=== PATIENT | female | born 1950 | race Caucasian/White ===

== ENCOUNTER → 2016-06-16 | Outpatient (CLI) | payer MEDICARE, OTHER ==
[2016-06-16 12:39] LABS: Basophils # (auto) 0 uL; Basophils % (auto) 0.3 % (0.0-2.0); DEFINITIVE VIEW TRANSMISSION; Eosinophils # (auto) 0.2 uL; Eosinophils % (auto) 3.5 % (0.0-7.0); Hematocrit 36.3 % (36.0-46.0); Hemoglobin 11.8 g/dL (12.2-16.2); Lymphocytes # (auto) 0.9 uL; Lymphocytes % (auto) 13.9 % (10.0-50.0); Mean Corpuscular Hemoglobin 26.7 pg (28.0-32.0); Mean Corpuscular Hgb Conc. 32.4 g/dL (32.0-36.0); Mean Corpuscular Volume 82.4 fL (80.0-100.0); Mean Platelet Volume 9.2 fL (7.4-10.4); Monocytes # (auto) 0.5 uL; Neutrophils % (auto) 75.3 % (37.0-80.0); Platelet Count (auto) 268 10^3/uL (140-450); Red Cell Distribution Width 15.4 % (11.6-16.0); White Blood Cell 6.6 10^3/uL (4.4-10.8)
[2016-06-16 12:49] LABS: Albumin 3.9 g/dL (3.4-5.0); BUN/Creatinine Ratio 11.5; Bilirubin, Total 0.5 mg/dL (0.2-1.0); Calcium 9.8 mg/dL (8.5-10.1); Potassium 4.5 mmol/L (3.5-5.1); Total Protein 7.3 g/dL (6.4-8.2)
== END | disposition home or self-care (01) ==
LOC: LAB 11:47
DX: I10 Essential (primary) hypertension (principal); M06.9 Rheumatoid arthritis, unspecified; M25.50 Pain in unspecified joint; Z79.899 Other long term (current) drug therapy; D64.9 Anemia, unspecified
CPT/HCPCS: 36415; 80053; 85025; 85652; 86141

== ENCOUNTER → 2016-10-01 | Outpatient (CLI) | payer MEDICARE, MEDICAID ==
[2016-10-01 14:33] LABS: Basophils # (auto) 0 uL; Basophils % (auto) 0.4 % (0.0-2.0); CONDITION Y; DEFINITIVE SEE PRINTOUT; Eosinophils # (auto) 0.3 uL; Eosinophils % (auto) 4.5 % (0.0-7.0); Hematocrit 34.5 % (36.0-46.0); Hemoglobin 11.2 g/dL (12.2-16.2); Lymphocytes # (auto) 0.8 uL; Lymphocytes % (auto) 14.7 % (10.0-50.0); Mean Corpuscular Hemoglobin 26.8 pg (28.0-32.0); Mean Corpuscular Hgb Conc. 32.4 g/dL (32.0-36.0); Mean Corpuscular Volume 82.8 fL (80.0-100.0); Mean Platelet Volume 7.8 fL (7.4-10.4); Monocytes # (auto) 0.7 uL; Monocytes % (auto) 12.2 % (0.0-12.0); Neutrophils # (auto) 3.9 uL; Neutrophils % (auto) 68.2 % (37.0-80.0); Platelet Count (auto) 315 10^3/uL (140-450); Red Cell Distribution Width 16.7 % (11.6-16.0); White Blood Cell 5.8 10^3/uL (4.4-10.8)
[2016-10-01 15:31] LABS: Albumin 3.6 g/dL (3.4-5.0); BUN/Creatinine Ratio 14.5; Bilirubin, Total 0.4 mg/dL (0.2-1.0); Calcium 9.2 mg/dL (8.5-10.1); Potassium 4.1 mmol/L (3.5-5.1); Total Protein 6.7 g/dL (6.4-8.2)
== END | disposition home or self-care (01) ==
LOC: LAB 14:06
DX: M06.9 Rheumatoid arthritis, unspecified (principal); M25.50 Pain in unspecified joint; D64.9 Anemia, unspecified; I10 Essential (primary) hypertension
CPT/HCPCS: 36415; 80053; 85025; 85652; 86141

== ENCOUNTER → 2016-10-07 | Outpatient (CLI) | payer MEDICARE, MEDICAID ==
[2016-10-07 12:37] LABS: Basophils # (auto) 0 uL; Basophils % (auto) 0.5 % (0.0-2.0); CONDITION Y; Eosinophils # (auto) 0.2 uL; Eosinophils % (auto) 3.8 % (0.0-7.0); Hematocrit 36.2 % (36.0-46.0); Lymphocytes # (auto) 0.7 uL; Lymphocytes % (auto) 13.1 % (10.0-50.0); Mean Corpuscular Hemoglobin 27.1 pg (28.0-32.0); Mean Corpuscular Hgb Conc. 33.1 g/dL (32.0-36.0); Mean Corpuscular Volume 81.8 fL (80.0-100.0); Mean Platelet Volume 8.3 fL (7.4-10.4); Monocytes # (auto) 0.5 uL; Monocytes % (auto) 8.9 % (0.0-12.0); Neutrophils # (auto) 4.2 uL; Neutrophils % (auto) 73.7 % (37.0-80.0); Platelet Count (auto) 289 10^3/uL (140-450); Red Cell Distribution Width 15.9 % (11.6-16.0); White Blood Cell 5.7 10^3/uL (4.4-10.8)
[2016-10-07 13:13] LABS: Albumin 3.8 g/dL (3.4-5.0); BUN/Creatinine Ratio 9.2; Bilirubin, Total 0.3 mg/dL (0.2-1.0); Calcium 9.6 mg/dL (8.5-10.1); Total Protein 7.3 g/dL (6.4-8.2)
== END | disposition home or self-care (01) ==
LOC: LAB 12:03
DX: M06.9 Rheumatoid arthritis, unspecified (principal); M25.50 Pain in unspecified joint; D64.9 Anemia, unspecified; I10 Essential (primary) hypertension; Z79.899 Other long term (current) drug therapy; M33.20 Polymyositis, organ involvement unspecified; M32.10 Systemic lupus erythematosus, organ or system involvement unspecified
CPT/HCPCS: 36415; 80053; 85025; 85652; 86038; 86141; 86160; 86200; 86225; 86431

== ENCOUNTER → 2017-01-05 | Outpatient (CLI) | payer MEDICARE, MEDICAID ==
[2017-01-05 10:59] LABS: Basophils # (auto) 0 uL; Basophils % (auto) 0.8 % (0.0-2.0); Eosinophils # (auto) 0.2 uL; Eosinophils % (auto) 4.4 % (0.0-7.0); Hemoglobin 13.5 g/dL (12.2-16.2); Lymphocytes # (auto) 0.7 uL; Lymphocytes % (auto) 14.4 % (10.0-50.0); Mean Corpuscular Hemoglobin 28.5 pg (28.0-32.0); Mean Corpuscular Hgb Conc. 32.9 g/dL (32.0-36.0); Mean Corpuscular Volume 86.8 fL (80.0-100.0); Mean Platelet Volume 8.5 fL (6.9-10.8); Monocytes # (auto) 0.4 uL; Monocytes % (auto) 9.2 % (0.0-12.0); Neutrophils # (auto) 3.4 uL; Neutrophils % (auto) 71.2 % (37.0-80.0); Nucleated Red Blood Cells % 0.1 %; Platelet Count (auto) 201 10^3/uL (140-450); Red Cell Distribution Width 16.4 % (11.8-14.3); White Blood Cell 4.7 10^3/uL (4.4-10.8)
[2017-01-05 11:23] LABS: Albumin 3.9 g/dL (3.4-5.0); Bilirubin, Total 0.4 mg/dL (0.2-1.0); Calcium 9.6 mg/dL (8.5-10.1); Potassium 4.2 mmol/L (3.5-5.1); Total Protein 7.1 g/dL (6.4-8.2)
== END | disposition home or self-care (01) ==
LOC: LAB 10:12
DX: I10 Essential (primary) hypertension (principal); M06.9 Rheumatoid arthritis, unspecified; M25.50 Pain in unspecified joint; D64.9 Anemia, unspecified; Z79.899 Other long term (current) drug therapy
CPT/HCPCS: 36415; 80053; 85025; 85652; 86141

== ENCOUNTER → 2017-03-30 | Outpatient (CLI) | payer MEDICARE, MEDICAID ==
[2017-03-30 11:01] LABS: Basophils # (auto) 0 uL; Basophils % (auto) 0.7 % (0.0-2.0); Eosinophils # (auto) 0.3 uL; Eosinophils % (auto) 4.9 % (0.0-7.0); Hematocrit 40.8 % (36.0-46.0); Lymphocytes # (auto) 0.7 uL; Lymphocytes % (auto) 12.4 % (10.0-50.0); Mean Corpuscular Hemoglobin 30.6 pg (28.0-32.0); Mean Corpuscular Hgb Conc. 34.3 g/dL (32.0-36.0); Mean Corpuscular Volume 89.3 fL (80.0-100.0); Mean Platelet Volume 8.2 fL (6.9-10.8); Monocytes # (auto) 0.5 uL; Monocytes % (auto) 8.5 % (0.0-12.0); Neutrophils # (auto) 4.1 uL; Neutrophils % (auto) 73.5 % (37.0-80.0); Nucleated Red Blood Cells % 0.1 %; Platelet Count (auto) 233 10^3/uL (140-450); Red Cell Distribution Width 14.4 % (11.8-14.3); White Blood Cell 5.6 10^3/uL (4.4-10.8)
[2017-03-30 11:42] LABS: Albumin 4.1 g/dL (3.4-5.0); BUN/Creatinine Ratio 12.5; Bilirubin, Total 0.5 mg/dL (0.2-1.0); Potassium 4.2 mmol/L (3.5-5.1); Total Protein 7.6 g/dL (6.4-8.2)
== END | disposition home or self-care (01) ==
LOC: LAB 10:29
DX: I10 Essential (primary) hypertension (principal); M06.9 Rheumatoid arthritis, unspecified; I70.0 Atherosclerosis of aorta; D64.9 Anemia, unspecified; E78.00 Pure hypercholesterolemia, unspecified; Z79.899 Other long term (current) drug therapy
CPT/HCPCS: 36415; 80053; 85025; 85652; 86141

== ENCOUNTER 2024-06-22 00:55 | Inpatient (IN) | payer MEDICARE, MEDICAID ==
[~2024-06-22] VITALS: Ht 157.5 cm; Wt 72.0 kg
--- NOTE | 2024-06-22 01:43 | ED.PDOC ---
History of Present Illness HPI Comments 74 y/o F is BIBA for c/o abdominal pain, nausea, vomiting, and constipation, today. Per EMS report, patient endorses on initial onset of diffused abdominal pain, yesterday, morning, that worsened, with additional onset of nausea and vomiting later that same evening and pain localizing to her epigastric region, this morning. Patient also reports on last bowel movement being yesterday, with endorsements of passing minimal amounts of gas, today. Her abdomen was noted to have been rigid and distended, with some mild tenderness to both of her lower quadrants upon assessment by staff on scene. Patient also reports on having small bowel movements for the past several months following last right knee replacement surgery in February 01, 2024. She has a reported history of breast cancer - in remission s/p left mastectomy, cholecystectomy, DMII, HTN, hysterectomy, hypothyroidism, lupus, and osteoarthritis. Patient denies any hematemesis, diarrhea, urinary symptoms, burping, fever, chills, or other associated symptoms or modifiers at this time. Chief Complaint: Abdominal Pain Time Seen by MD: 01:15 Reviewed Notes: Nurses Notes, Medications, Allergies Allergies: Coded Allergies: Ciprofloxacin (Verified Allergy, Unknown, 06/22/24) Nitrofurantoin (Verified Allergy, Unknown, 06/22/24) Information Source: Patient, Emergency Med Personnel Mode of Arrival: EMS Severity: Moderate Timing: Hours Duration: Since onset Prehospital treatment: 12 Lead EKG, [employer] Professor Review of Systems: REVIEW OF SYSTEMS: No fever, no chills, or fatigue HEENT: No sore throat, no earache, no congestion, no neck pain. Cardiac: No chest pain. No palpitations. Lungs: No shortness of breath, no cough. GI: Abdominal pain, nausea, vomiting, constipation, no diarrhea. : No dysuria, frequency, or urgency. No hematuria. Musculoskeletal: No joint pain , no joint swelling, no extremity edema. Skin: No rash, no itching. Neuro: No headache, no dizziness, no weakness Vital Signs Vital Signs Date Time Temp Pulse Resp B/P (MAP) Pulse Ox O2 Delivery O2 Flow Rate FiO2 06/22/24 01:08 95 06/22/24 01:00 97.8 20 115/53 (73) 100 Physical Exam General: Awake, alert and oriented. No acute distress. Skin: Skin in warm, dry and intact. Appropriate color for ethnicity. HEENT: The head is normocephalic and atraumatic. Conjunctivae are clear without exudates or hemorrhage. Sclera is non-icteric. EOM are intact. No signs of nystagmus. Eyelids are normal in appearance without swelling or lesions. Oral mucosa is pink and moist Neck: The neck is supple with normal range of motion. No JVD. Cardiac: Heart rate and rhythm are normal. No murmurs, gallops, or rubs are auscultated. Respiratory: No signs of respiratory distress. Lung sounds are clear in all lobes bilaterally without rales, ronchi, or wheezes. Abdominal: Abdomen is soft, non-tender without distention. Bowel sounds are present and normoactive in all four quadrants. Extremities: Upper and lower extremities are atraumatic in appearance without deformity or edema. Neurological: The patient is awake, alert and oriented to person, place, and time with normal speech. Speech is clear. There is no facial asymmetry. Psychiatric: Appropriate mood and affect. Good judgement and insight. No visual or auditory hallucinations. Was a procedure done? Was a procedure done?: No Differential Dx Considerations may include: Differential diagnoses considered include: Abdominal aortic aneurysm, [place], esophageal rupture, intestinal obstruction, mesenteric ischemia, perforated viscus or solid organ rupture, CHF with hepatomegaly, pneumonia, abscess, appendicitis, biliary disease, diverticulitis, gastritis, gastroenteritis, hepatitis, hernia, inflammatory bowel disease, pancreatitis, peptic ulcer disease, urinary tract infection, ureteral colic, constipation, GERD, irritable syndrome, abdominal wall pain, nonspecific abdominal pain, herpes zoster. X-Ray, Labs, Meds, VS Vital Signs Date Time Temp Pulse Resp B/P (MAP) Pulse Ox O2 Delivery O2 Flow Rate FiO2 06/22/24 01:08 95 06/22/24 01:00 97.8 99 20 115/53 (73) 100 Time of 1ST Reevaluation: 01:45 Reevaluation 1ST: Unchanged Patient Education/Counseling: Treatment, Need For Follow Up Family Education/Counseling: No Family Present Critical Care Note Critical Care Time?: No Stability Stability form required: No Heart Score Heart Score: Heart Score Response (Comments) Value History N/A 0 EKG N/A 0 Age N/A 0 Risk Factors N/A 0 Troponin N/A 0 Total 0 I personally scribed for EDINSON AMAYA MD ([email or web address]) on 06/22/24 at 01:43. Electronically submitted by Javier Vasquez ([email or web address]). I personally scribed for EDINSON AMAYA MD ([email or web address]) on 06/22/24 at 01:59. Electronically submitted by Javier Vasquez ([email or web address]). EDINSON AMAYA MD Jun 22, 2024 01:43
--- NOTE | 2024-06-22 02:06 | ED.PDOC ---
History of Present Illness HPI Comments 74 y/o F is BIBA for c/o abdominal pain, nausea, vomiting, and constipation, today. Per EMS report, patient endorses on initial onset of diffused abdominal pain, yesterday, morning, that worsened, with additional onset of nausea and vomiting later that same evening and pain localizing to her epigastric region, this morning. Patient also reports on last bowel movement being yesterday, with endorsements of passing minimal amounts of gas, today. Her abdomen was noted to have been rigid and distended, with some mild tenderness to both of her lower quadrants upon assessment by staff on scene. Patient also reports on having small bowel movements for the past several months following last right knee replacement surgery in February 01, 2024. She has a reported history of breast cancer - in remission s/p left mastectomy, cholecystectomy, DMII, HTN, hysterectomy, hypothyroidism, lupus, and osteoarthritis. Patient denies any hematemesis, diarrhea, urinary symptoms, burping, fever, chills, or other associated symptoms or modifiers at this time. Chief Complaint: Abdominal Pain Time Seen by MD: 00:56 Reviewed Notes: Nurses Notes, Photograph Enlarger Notes, Medications, Allergies Allergies: Coded Allergies: Ciprofloxacin (Verified Allergy, Unknown, 06/22/24) Nitrofurantoin (Verified Allergy, Unknown, 06/22/24) Information Source: Patient, Emergency Med Personnel Mode of Arrival: EMS Severity: Moderate Timing: Hours Duration: Since onset Prehospital treatment: 12 Lead EKG, Podiatry Professor Review of Systems: REVIEW OF SYSTEMS: No fever, no chills, or fatigue HEENT: No sore throat, no earache, no congestion, no neck pain. Cardiac: No chest pain. No palpitations. Lungs: No shortness of breath, no cough. GI: Abdominal pain, nausea, vomiting, constipation, no diarrhea. : No dysuria, frequency, or urgency. No hematuria. Musculoskeletal: No joint pain , no joint swelling, no extremity edema. Skin: No rash, no itching. Neuro: No headache, no dizziness, no weakness Vital Signs Vital Signs Date Time Temp Pulse Resp B/P (MAP) Pulse Ox O2 Delivery O2 Flow Rate FiO2 06/22/24 05:19 86 19 129/67 06/22/24 05:16 98.9 100 98.9 06/22/24 02:18 Room Air* 0 21 Physical Exam General: Awake, alert and oriented. No acute distress. Skin: Skin in warm, dry and intact. Appropriate color for ethnicity. HEENT: The head is normocephalic and atraumatic. Conjunctivae are clear without exudates or hemorrhage. Sclera is non-icteric. EOM are intact. No signs of nystagmus. Eyelids are normal in appearance without swelling or lesions. Oral mucosa is pink and moist Neck: The neck is supple with normal range of motion. No JVD. Cardiac: Heart rate and rhythm are normal. No murmurs, gallops, or rubs are auscultated. Respiratory: No signs of respiratory distress. Lung sounds are clear in all lobes bilaterally without rales, ronchi, or wheezes. Abdominal: Abdomen distended, generally tender with diminished bowel sounds. Extremities: Upper and lower extremities are atraumatic in appearance without deformity or edema. Neurological: The patient is awake, alert and oriented to person, place, and time with normal speech. Speech is clear. There is no facial asymmetry. Psychiatric: Appropriate mood and affect. Good judgement and insight. Past Medical History PAST MEDICAL HISTORY: Arthritis (osteoarthritis), Cancer (breast CA, in remission s/p left mastectomy ), DM (type II ), HTN, Thyroid (hypothryoidism ) Past Medical History (Other): lupus Surgical History: Cholecystectomy, Hysterectomy Surgical History (Other): bilateral knee replacement, left mastectomy TUBE BENDER HAND History: Denies all TUBE BENDER HAND Hx Family History Family History: Unknown Social History Smoker: Non-Smoker Alcohol: Denies ETOH Use Drugs: Denies Drug Use Lives In: Home Was a procedure done? Was a procedure done?: No Differential Dx Considerations may include: Differential diagnoses considered include: Abdominal aortic aneurysm, [place], esophageal rupture, intestinal obstruction, mesenteric ischemia, perforated viscus or solid organ rupture, CHF with hepatomegaly, pneumonia, abscess, appendicitis, biliary disease, diverticulitis, gastritis, gastroenteritis, hepatitis, hernia, inflammatory bowel disease, pancreatitis, peptic ulcer disease, urinary tract infection, ureteral colic, constipation, GERD, irritable syndrome, abdominal wall pain, nonspecific abdominal pain, herpes zoster. X-Ray, Labs, Meds, VS Vital Signs Date Time Temp Pulse Resp B/P (MAP) Pulse Ox O2 Delivery O2 Flow Rate FiO2 06/22/24 05:19 86 19 129/67 06/22/24 05:16 98.9 86 19 129/67 (87) 100 98.9 06/22/24 02:18 97 17 100 Room Air* 0 21 06/22/24 02:17 98.2 97 19 154/74 (100) 100 98.2 06/22/24 01:08 95 06/22/24 01:00 97.8 99 20 115/53 (73) 100 Lab Test 06/22/24 05:15 06/22/24 03:58 06/22/24 02:27 06/22/24 02:03 Range/Units Urine Color Yellow Yellow Urine Clarity Clear Clear Urine pH 8.0 5.0-9.0 Urine Specific [place] 1.030 1.001-1.035 Urine Protein Trace H Negative Urine Ketones Negative Negative Urine Blood Negative Negative /uL Urine Nitrite Negative Negative Urine Bilirubin Negative Negative Urine Urobilinogen Normal Negative mg/dL Urine Leukocyte Esterase Negative Negative /uL Urine RBC <1 0 - 4 /hpf Urine Microscopic WBC < 1 0-5 /HPF Urine Squamous Epithelial Cells Few <5 /hpf Urine Bacteria None seen None Seen /hpf Urine Glucose Normal Normal mg/dL Lactic Acid Level 2.6 *H 3.2 *H 0.4-2.0 mmol/L POC Glucose 176 H 70-106 mg/dl White Blood Count 15.7 H 4.4-10.8 10^3/uL Red Blood Count 5.20 4.0-5.20 10^6/uL Hemoglobin 14.6 12.2-16.2 g/dL Hematocrit 43.1 36.0-46.0 % Mean Corpuscular Volume 83.0 80.0-100.0 fL Mean Corpuscular Hemoglobin 28.0 28.0-32.0 pg Mean Corpuscular Hemoglobin Concent 33.8 32.0-36.0 g/dL Red Cell Distribution Width 14.5 H 11.8-14.3 % Platelet Count 293 140-450 10^3/uL Mean Platelet Volume 7.4 6.9-10.8 fL Neutrophils (%) (Auto) 93.3 H 37.0-80.0 % Lymphocytes (%) (Auto) 1.5 L 10.0-50.0 % Monocytes (%) (Auto) 4.5 0.0-12.0 % Eosinophils (%) (Auto) 0.2 0.0-7.0 % Basophils (%) (Auto) 0.5 0.0-2.0 % Neutrophils # (Auto) 14.6 H 1.6-8.6 10 ^3/uL Lymphocytes # (Auto) 0.2 L 0.4-5.4 10 ^3/uL Monocytes # (Auto) 0.7 0-1.3 10 ^3/uL Eosinophils # (Auto) 0 0-0.8 10 ^3/uL Basophils # (Auto) 0.1 0-0.2 10 ^3/uL Nucleated Red Blood Cells 0.0 % Sodium Level 128 L 136-145 mmol/L Potassium Level 4.5 3.5-5.1 mmol/L Chloride Level 91 L 98-107 mmol/L Carbon Dioxide Level 25 20-31 mmol/L Anion Gap 12 5-15 Blood Urea Nitrogen 10 9-23 mg/dL Creatinine 1.03 H 0.550-1.02 mg/dL Glomerular Filtration Rate Calc 56 >90 mL/min BUN/Creatinine Ratio 9.7 L 10.0-20.0 Serum Glucose 174 H 74-106 mg/dL Calcium Level 11.7 H 8.7-10.4 mg/dL Total Bilirubin 0.7 0.2-1.0 mg/dL Aspartate Amino Transferase (AST) 27 13-40 U/L Alanine Aminotransferase (ALT) 17 7-40 U/L Alkaline Phosphatase 107 46-116 U/L Troponin I High Sensitivity 36 *H </=34 ng/L Total Protein 7.5 5.7-8.2 g/dL Albumin 4.9 H 3.2-4.8 g/dL Lipase 43 12-53 U/L Current Medications Medications (Trade) Dose Ordered Sig/Alli Route Start Time Stop Time Status Last Admin Ondansetron HCl (Zofran) 4 mg ONCE ONCE IV 06/22/24 02:00 06/22/24 02:01 DC 06/22/24 02:17 Sodium Chloride 1,000 ml @ 1,000 mls/hr Q1H ONCE IV 06/22/24 04:30 06/22/24 05:29 DC 06/22/24 05:19 Ceftriaxone Sodium 50 ml @ 100 mls/hr ONCE ONCE IV 06/22/24 04:30 06/22/24 04:59 DC 06/22/24 04:30 Morphine Sulfate 2 mg ONCE ONCE IV 06/22/24 05:00 06/22/24 05:01 DC 06/22/24 05:19 Time of 1ST Reevaluation: 01:45 Reevaluation 1ST: Unchanged Patient Education/Counseling: Treatment, Need For Follow Up Family Education/Counseling: No Family Present Departure 1 Departure Time of Disposition: 01:45 Impression: Primary Impression: Hyponatremia Additional Impressions: Partial small bowel obstruction Lactic acidemia Hyperglycemia Disposition: 09 ADMITTED INPATIENT Condition: Stable Comments 74-year-old female who presents with constipation, CT suspicious for partial bowel obstruction. Careful administration IV fluids given severe hyponatremia. Patient is afebrile and not hypotensive. Patient admitted for further treatment, evaluation and monitoring. Critical Care Note Critical Care Time?: No Stability Stability form required: No Heart Score Heart Score: Heart Score Response (Comments) Value History N/A 0 EKG N/A 0 Age N/A 0 Risk Factors N/A 0 Troponin N/A 0 Total 0 I personally scribed for EDINSON AMAYA MD ([email or web address]) on 06/22/24 at 02:06. Electronically submitted by Javier Vasquez [email or web address]). EDINSON AMAYA MD Jun 22, 2024 02:06
[2024-06-22] MEDS: ONDANSETRON HCL 4 MG/2 ML VIAL IV ONE ×2 (02:17→06:26)
[2024-06-22 02:18] VITALS: PULSE 97; RESP 17; O2SAT 100
[2024-06-22 02:20] LABS: Basophils # (auto) 0.1 10 ^3/uL (0-0.2); Basophils % (auto) 0.5 % (0.0-2.0); Eosinophils # (auto) 0 10 ^3/uL (0-0.8); Eosinophils % (auto) 0.2 % (0.0-7.0); Hematocrit 43.1 % (36.0-46.0); Hemoglobin 14.6 g/dL (12.2-16.2); Lymphocytes # (auto) 0.2 10 ^3/uL (0.4-5.4); Lymphocytes % (auto) 1.5 % (10.0-50.0); Mean Corpuscular Hgb Conc. 33.8 g/dL (32.0-36.0); Monocytes # (auto) 0.7 10 ^3/uL (0-1.3); Monocytes % (auto) 4.5 % (0.0-12.0); Neutrophils # (auto) 14.6 10 ^3/uL (1.6-8.6); Neutrophils % (auto) 93.3 % (37.0-80.0); Platelet Count (auto) 293 10^3/uL (140-450); Red Cell Distribution Width 14.5 % (11.8-14.3); White Blood Cell 15.7 10^3/uL (4.4-10.8)
[2024-06-22 02:36] LABS: Alanine Aminotransferase 17 U/L (7-40); Albumin 4.9 g/dL (3.2-4.8); Alkaline Phosphatase 107 U/L (46-116); Anion Gap 12 (5-15); Aspartate Aminotransferase 27 U/L (13-40); BUN/Creatinine Ratio 9.7 (10.0-20.0); Bilirubin, Total 0.7 mg/dL (0.2-1.0); Blood Urea Nitrogen 10 mg/dL (9-23); Calcium 11.7 mg/dL (8.7-10.4); Carbon Dioxide 25 mmol/L (20-31); Chloride 91 mmol/L (98-107); Glucose 174 mg/dL (74-106); Lipase 43 U/L (12-53); Potassium 4.5 mmol/L (3.5-5.1); Sodium 128 mmol/L (136-145); Total Protein 7.5 g/dL (5.7-8.2)
[2024-06-22 02:40] LABS: Lactic Acid w/Reflex 3.2 mmol/L (0.4-2.0)
[2024-06-22] MEDS: IOHEXOL 300 MG/ML 100ML BOTTLE IJ ONE (03:03)
--- NOTE | 2024-06-22 03:19 | DVH ---
CHEST RADIOGRAPH Indication: Epigastric pain, vomiting Technique: Single frontal view of the chest was obtained Comparison: None IMPRESSION: Heart appears normal in size. The lungs appear clear without focal airspace opacity, effusion, or pn eumothorax. Mild interstitial prominence. Surgical clips left axilla.
--- NOTE | 2024-06-22 03:56 | DVH ---
Exam: CT CT AB PEL WITH IV CON ONLY History: Abdominal pain Comparison Study: None available at time of dictation. Contrast: 100 cc Omnipaque 300 TECHNIQUE: A digital cold press operator image was obtained. During the uneventful, intravenous administration of c ontrast material, multislice data acquisition was obtained through the abdomen and pelvis. The data s et was subsequently reconstructed into axial images. Images were reviewed on a work station using a c ombination of axial and multiplanar using a variety of window levels and settings. All CT scans at this medical facility are performed using dose modulation techniques as appropriate t o a performed exam including the following: Automated exposure control was utilized; adjustment of th e MA and/or KV according to patient size; and use of iterative reconstruction technique. Radiation Dose Information: CT Dose: CTDI volume is 18.81 mGy. Dose-length product is 941.77 mGy*cm FINDINGS: Imaged portions of the lung bases appear unremarkable. Small hiatal hernia. Lobulated lesion in the left hepatic lobe measuring 2.1 cm has the appearance of cyst. There has been prior cholecystectomy. The spleen, pancreas and adrenal glands appear unremarkable. The kidneys en tashi symmetrically with small bilateral cysts. The colon is redundant. Appendix not well visualized. There are mildly dilated loops of proximal smal l bowel measuring up to 3.3 cm containing inspissated debris and fluid with collapsed distal ileal lo ops. Transition point appearing in the lower mid abdomen. Trace free fluid. No evidence of free intr aperitoneal air or pneumatosis. No suspicious osseous lesion. IMPRESSION: 1. Dilated loops of small bowel with transition point in the lower mid abdomen favoring early complet e versus partial small bowel obstruction. HS:Y
[2024-06-22] MEDS: cefTRIAXone 1GM/50ML D5W 50 ML IV ONE (04:30)
[2024-06-22 05:17] LABS: Urine Bacteria None Seen /hpf (None Seen)
[2024-06-22] MEDS: SODIUM CHLORIDE 0.9% 1,000 ML IV ONE ×4 (05:19→20:50)
[2024-06-22] MEDS: MORPHINE SULFATE INJ 2 MG/ml SYRG IV ONE (05:19)
[2024-06-22 05:29] LABS: Urine Blood Negative /uL (Negative); Urine Clarity Clear (Clear); Urine Color Yellow (Yellow); Urine Protein, UAD TRACE (Negative); Urine Squamous Epithelial Cell FEW /hpf (<5); Urine Urobilinogen Normal (Negative); Urine WBC < 1 /HPF (0-5)
[2024-06-22] MEDS ORDERED: MORPHINE SULFATE INJ 2 MG/ml SYRG IV PRN (05:45)
[2024-06-22 05:53] VITALS: PULSE 90; RESP 12; O2SAT 99
[2024-06-22] MEDS: metroNIDAZOLE 500MG/100ML 100 ML IV SCH (06:27)
--- NOTE | 2024-06-22 06:38 | DVHHPRES ---
History of Present Illness Resident Creating Document: LEONOR OSBORNE RESIDENT Reason for Visit: Nausea and vomiting, abdominal pain History of Present Illness Patient is a 74-year-old female with significant past medical history presented to the ED today with 1 day history of severe abdominal pain. According to the patient, she was in her normal state of health the day prior but upon waking up yesterday morning, she started having mild general abdominal pain that became severe and associated with nausea and vomiting. She felt generalized soreness in her abdomen as though she was hit with a fist. The pain continued the entire day without relief thus prompting the ED visit. Patient denied any history of trauma, abdominal surgery; however, she did admits having other surgeries. Patient denied any fever, chest pain, palpitation, weakness. CT abdomen reveals dilated loops of small bowel with transition point in the lower mid abdomen favoring early complete versus partial small bowel obstruction. Past Medical history: Lupus, sarcoidosis, hypothyroidism, diabetes, hypertension, Past surgical history : Bilateral knee replacement, max mastitis, tonsillectomy, and hysterectomy Family history noncontributory Medications: See med rec Past Medical History See HPI Family History See hpi Review of Systems Constitutional: No: Fever, Chills, Sweats, Weakness, Malaise, Other ENT: No: Ear pain, Ear discharge, Nose pain, Nose discharge, Nose congestion, Mouth pain, Mouth swelling, Throat pain, Throat swelling, Other Respiratory: No: Cough, Dry, Shortness of breath, SOB with excertion, Wheezing, Hemoptysis, Pleuritic Pain, Sputum, Wheezing, Other Cardiovascular: No: Chest Pain, Palpitations, Orthopnea, Paroxysmal Noc. Dyspnea, Edema, Lt Headedness, Other Gastrointestinal: Nausea, Vomiting, Abdominal Pain, Diarrhea, Constipation Genitourinary: Dysuria, Frequency, Incontinence Musculoskeletal: No: other, neck pain, shoulder pain, arm pain, back pain, hand pain, leg pain, foot pain Skin: No: Rash, Lesions, Jaundice, Bruising, Other Neurological: No: Weakness, Numbness, Incoordination, Change in speech, Confusion, Seizures, Other Allergies: Coded Allergies: Ciprofloxacin (Verified Allergy, Unknown, 06/22/24) Nitrofurantoin (Verified Allergy, Unknown, 06/22/24) Exam Vital Signs Vital Signs Date Time Temp Pulse Resp B/P (MAP) Pulse Ox O2 Delivery O2 Flow Rate FiO2 06/22/24 02:18 97 17 100 Room Air* 0 21 06/22/24 02:17 98.2 154/74 (100) 98.2 General Appearance: Alert, Oriented X3, Cooperative HEENT: Atraumatic, PERRLA, EOMI, Mucous membr. moist/pink Respiratory: Clear to auscultation, Normal air movement Cardiovascular: Regular rate, Normal S1, Normal S2, Other (tender on palpation more in the right lower quadrant, distended. pain ) Extremities: No clubbing, No cyanosis, No edema, Normal pulses, No tenderness/swelling Skin: No rashes, No breakdown Neuro: Normal gait, Normal speech, Strength at 5/5 X4 ext, Normal tone (tender) Psych/Mental Status: Mental status NL, Mood NL Labs/Xrays Labs Test 06/22/24 05:15 06/22/24 03:58 06/22/24 02:27 06/22/24 02:03 Range/Units Urine Color Yellow Yellow Urine Clarity Clear Clear Urine pH 8.0 5.0-9.0 Urine Specific [place] 1.030 1.001-1.035 Urine Protein Trace H Negative Urine Ketones Negative Negative Urine Blood Negative Negative /uL Urine Nitrite Negative Negative Urine Bilirubin Negative Negative Urine Urobilinogen Normal Negative mg/dL Urine Leukocyte Esterase Negative Negative /uL Urine RBC <1 0 - 4 /hpf Urine Microscopic WBC < 1 0-5 /HPF Urine Squamous Epithelial Cells Few <5 /hpf Urine Bacteria None seen None Seen /hpf Urine Glucose Normal Normal mg/dL Lactic Acid Level 2.6 *H 0.4-2.0 mmol/L POC Glucose 176 H 70-106 mg/dl White Blood Count 15.7 H 4.4-10.8 10^3/uL Red Blood Count 5.20 4.0-5.20 10^6/uL Hemoglobin 14.6 12.2-16.2 g/dL Hematocrit 43.1 36.0-46.0 % Mean Corpuscular Volume 83.0 80.0-100.0 fL Mean Corpuscular Hemoglobin 28.0 28.0-32.0 pg Mean Corpuscular Hemoglobin Concent 33.8 32.0-36.0 g/dL Red Cell Distribution Width 14.5 H 11.8-14.3 % Platelet Count 293 140-450 10^3/uL Mean Platelet Volume 7.4 6.9-10.8 fL Neutrophils (%) (Auto) 93.3 H 37.0-80.0 % Lymphocytes (%) (Auto) 1.5 L 10.0-50.0 % Monocytes (%) (Auto) 4.5 0.0-12.0 % Eosinophils (%) (Auto) 0.2 0.0-7.0 % Basophils (%) (Auto) 0.5 0.0-2.0 % Neutrophils # (Auto) 14.6 H 1.6-8.6 10 ^3/uL Lymphocytes # (Auto) 0.2 L 0.4-5.4 10 ^3/uL Monocytes # (Auto) 0.7 0-1.3 10 ^3/uL Eosinophils # (Auto) 0 0-0.8 10 ^3/uL Basophils # (Auto) 0.1 0-0.2 10 ^3/uL Nucleated Red Blood Cells 0.0 % Sodium Level 128 L 136-145 mmol/L Potassium Level 4.5 3.5-5.1 mmol/L Chloride Level 91 L 98-107 mmol/L Carbon Dioxide Level 25 20-31 mmol/L Anion Gap 12 5-15 Blood Urea Nitrogen 10 9-23 mg/dL Creatinine 1.03 H 0.550-1.02 mg/dL Glomerular Filtration Rate Calc 56 >90 mL/min BUN/Creatinine Ratio 9.7 L 10.0-20.0 Serum Glucose 174 H 74-106 mg/dL Calcium Level 11.7 H 8.7-10.4 mg/dL Total Bilirubin 0.7 0.2-1.0 mg/dL Aspartate Amino Transferase (AST) 27 13-40 U/L Alanine Aminotransferase (ALT) 17 7-40 U/L Alkaline Phosphatase 107 46-116 U/L Troponin I High Sensitivity 36 *H </=34 ng/L Total Protein 7.5 5.7-8.2 g/dL Albumin 4.9 H 3.2-4.8 g/dL Lipase 43 12-53 U/L Assessment/Plan Assessment/Plan SIRS Acute small-bowel obstruction partial versus complete SLE Sarcoidosis Hypothyroidism Obesity Chronic hyponatremia Nstemi Plan Admit NPO IV ceftriaxone +IV metronidazole IV fluids surgery consult obesity Goal of care discussed for more than 35 minutes, full code Case and plan discussed with Dr. Blanco Plan discussed with: Patient, Daughter, Other (sister) My Orders Orders - LEONOR OSBORNE Procedure Category Date Status Time Admit ADMIT 06/22/24 Transmitted 05:44 Morphine Sulfate PHA 06/22/24 Logged Injection 05:45 Notify Of Changes OLIVER 06/22/24 In Process From Base 05:44 Date of Service: Jun 22, 2024 Billing Provider: SALVADOR BLANCO MD Common Visit Codes: 22106-PINIZWK INP/OBS CARE (HIGH) Secondary Visit Codes: 44299-IFUIKEON CARE PLAN 30 MINUTES LEONOR OSBORNE Jun 22, 2024 06:38 SALVADOR BLANCO MD Jun 22, 2024 17:46
--- NOTE | 2024-06-22 06:41 | ECG ---
[facility] Test Date: 2024-06-22 Test Time: 01:08:58 Pat Name: COLLEEN VARGAS Department: ED Room: [address] [place] [address] Gender: F Print Finisher: RONI : 1950 Requested By: EDINSON AMAYA Order Number: [id number] Reading MD: Kervin Roca Measurements Intervals [place] Rate: 95 P: 38 [place]: 152 QRS: 7 QRSD: 81 T: 31 QT: 352 QTc: 443 Interpretive Statements Sinus rhythm Left atrial enlargement Electronically Signed On 06-25-2024 18:52:27 PDT by Kervin Roca Please click the below link to view image of tracing.
[2024-06-22 07:41] VITALS: PULSE 102; RESP 17; O2SAT 95
[2024-06-22 07:52] LABS: Basophils # (auto) 0 10 ^3/uL (0-0.2); Basophils % (auto) 0.4 % (0.0-2.0); Eosinophils # (auto) 0 10 ^3/uL (0-0.8); Eosinophils % (auto) 0.4 % (0.0-7.0); Hematocrit 38.9 % (36.0-46.0); Hemoglobin 13.1 g/dL (12.2-16.2); Lymphocytes # (auto) 0.4 10 ^3/uL (0.4-5.4); Lymphocytes % (auto) 3.5 % (10.0-50.0); Mean Corpuscular Hemoglobin 28.4 pg (28.0-32.0); Mean Corpuscular Hgb Conc. 33.7 g/dL (32.0-36.0); Mean Corpuscular Volume 84.1 fL (80.0-100.0); Monocytes # (auto) 0.7 10 ^3/uL (0-1.3); Monocytes % (auto) 5.8 % (0.0-12.0); Neutrophils # (auto) 10.3 10 ^3/uL (1.6-8.6); Neutrophils % (auto) 89.9 % (37.0-80.0); Platelet Count (auto) 238 10^3/uL (140-450); Red Blood Cells 4.62 10^6/uL (4.0-5.20); Red Cell Distribution Width 14.5 % (11.8-14.3); White Blood Cell 11.5 10^3/uL (4.4-10.8)
[2024-06-22 07:56] LABS: Calcium 10.1 mg/dL (8.7-10.4); Potassium 4.3 mmol/L (3.5-5.1)
[2024-06-22 07:57] LABS: Anion Gap 7 (5-15); Carbon Dioxide 24 mmol/L (20-31); INR 1.06 (0.9-1.15); Partial Thromboplastin Time 25.4 SEC (24.5-34.5); Prothrombin Time 11.2 sec (9.3-11.8)
[2024-06-22 08:02] LABS: BUN/Creatinine Ratio 10.1 (10.0-20.0)
[2024-06-22 08:06] LABS: Blood Urea Nitrogen 9 mg/dL (9-23); Chloride 96 mmol/L (98-107); Glucose 139 mg/dL (74-106); Magnesium 1.3 mg/dL (1.6-2.6); Sodium 127 mmol/L (136-145)
[2024-06-22 08:37] LABS: Amphetamine Screen, Urine Neg (NEGATIVE); Barbiturate Scree,Urine Neg (NEGATIVE); Benzodiazephine Screen, Urine Neg (NEGATIVE); Cannabinoid Screen, Urine Neg (NEGATIVE); Cocaine Screen, Urine Neg (NEGATIVE); Opiate Scree,Urine Neg (NEGATIVE); Phencyclidine Screen, Urine Neg (NEGATIVE)
[2024-06-22] MEDS ORDERED: ONDANSETRON HCL 4 MG/2 ML VIAL IV PRN (09:30)
[2024-06-22] MEDS: PANTOPRAZOLE 40 MG/10 ML VIAL INJ IV SCH (09:31)
[2024-06-22] MEDS: ENOXAPARIN SOD 40 MG/0.4 ML SYRINGE SC SCH (09:32)
[2024-06-22] MEDS: MORPHINE SULFATE INJ 2 MG/ml SYRG IV PRN (09:56)
[2024-06-22] MEDS: MORPHINE SULFATE INJ 2 MG/ml SYRG IM STA (09:57)
[2024-06-22] MEDS: ONDANSETRON HCL 4 MG/2 ML VIAL IV STA (09:58)
--- NOTE | 2024-06-22 09:58 | DVHINCON2 ---
Date of service: Jun 22, 2024 Reason for Consultation complete vs partial SBO History of Present Illness History Source: Patient, RN Notes, MD Notes Exam Limitations: No limitations HPI 74 year old female presented to the ER with complaint of 1 day of severe a bdominal pain , no bowel movement for the past two days.Patient states the pain became progressively worse associated with nausea an vomiting, Patient also states she has been having chronic constipation ever since her knee surgery. Bowel movements are not regular. Chief Complaint of Abdominal/F: Abdominal pain, Diarrhea, Vomiting, Nausea Onset/Duration of Abd/Flank Pa: 24 hours Quality of Abd/Flank Pain: Sharpness Location of Abdominal Onset: Generalized abdomen Past Medical History Cardiac: HTN Pulmonary: No pertinent Hx Central Nervous System: No pertinent Hx GI: No pertinent Hx Hemotology/Oncology: No pertinent Hx Hepatobiliary: No pertinent Hx Psychiatric: No pertinent Hx Musculoskeletal: No pertinent Hx Rheumotologic: No pertinent Hx Infectious Disease: No peritnent Hx ENT: No pertinent Hx Renal/: No pertinent Hx Endocrine: Hypothyroidism, NIDDM Others sarcoidosis, Lupus Review of Systems Constitutional: No symptom reported Ears, Nose, & Throat: No symptom reported Eyes: No symptom reported Pulmonary/Respiratory: No symptom reported Cardiovascular: No symptom reported Gastrointestinal: Nausea, Vomiting, Abdominal Pain, Constipation Genitourinary: No symptom reported Musculoskeletal: No symptom reported Skin: No symptom reported Psychiatric: No symptom reported Endocrine: No symptom reported Hemotologic/Lymphatic: No symptom reported H&P Exam Vital Signs Vital Signs Date Time Temp Pulse Resp B/P (MAP) Pulse Ox O2 Delivery O2 Flow Rate FiO2 06/22/24 08:00 85 06/22/24 07:41 98.4 17 142/55 (84) 95 98.4 06/22/24 07:41 Nasal Cannula* 2 28 General Appeara: Well developed, Well nourished, Normal Appearance Head Exam: Normal inspection, Active bleeding Eye Exam: bilateral eye Normal inspection Nasal Exam: Normal inspection, Active bleeding Mouth: Normal Inspection Pulmonary/Respiratory: Normal inspection Cardiovascular/Chest: Normal inspection Abdominal Exam: Normal bowel sounds, Soft Abdominal Pain Onset Location: Generalized abdomen Rectal Exam: Deferred Hand Exam: Normal inspection Tendon/ Neuro: Normal sensation MASTER WELDER Exam: Normal hearing, Normal speech, PERRL Neuro/Mental St: Alert, Oriented Appearance: Appropriate appearance Eye contact/ Speech: Cooperative, Good eye contact, Normal speech Thoughts/Psych: Normal thought pattern Skin Exam: Normal inspection, Normal color, Warm/dry Lymphatic: Normal inspection Labs/Xrays Labs Test 06/22/24 08:40 06/22/24 07:06 06/22/24 05:15 06/22/24 02:27 Range/Units White Blood Count 11.5 #H 4.4-10.8 10^3/uL Red Blood Count 4.62 4.0-5.20 10^6/uL Hemoglobin 13.1 12.2-16.2 g/dL Hematocrit 38.9 36.0-46.0 % Mean Corpuscular Volume 84.1 80.0-100.0 fL Mean Corpuscular Hemoglobin 28.4 28.0-32.0 pg Mean Corpuscular Hemoglobin Concent 33.7 32.0-36.0 g/dL Red Cell Distribution Width 14.5 H 11.8-14.3 % Platelet Count 238 140-450 10^3/uL Mean Platelet Volume 7.3 6.9-10.8 fL Neutrophils (%) (Auto) 89.9 H 37.0-80.0 % Lymphocytes (%) (Auto) 3.5 L 10.0-50.0 % Monocytes (%) (Auto) 5.8 0.0-12.0 % Eosinophils (%) (Auto) 0.4 0.0-7.0 % Basophils (%) (Auto) 0.4 0.0-2.0 % Neutrophils # (Auto) 10.3 H 1.6-8.6 10 ^3/uL Lymphocytes # (Auto) 0.4 0.4-5.4 10 ^3/uL Monocytes # (Auto) 0.7 0-1.3 10 ^3/uL Eosinophils # (Auto) 0 0-0.8 10 ^3/uL Basophils # (Auto) 0 0-0.2 10 ^3/uL Nucleated Red Blood Cells 0.0 % Prothrombin Time 11.2 9.3-11.8 sec Prothrombin Time INR 1.06 0.9-1.15 Activated Partial Thromboplast Time 25.4 24.5-34.5 SEC Sodium Level 127 L 136-145 mmol/L Potassium Level 4.3 3.5-5.1 mmol/L Chloride Level 96 L 98-107 mmol/L Carbon Dioxide Level 24 20-31 mmol/L Anion Gap 7 5-15 Blood Urea Nitrogen 9 9-23 mg/dL Creatinine 0.89 0.550-1.02 mg/dL Glomerular Filtration Rate Calc 67 >90 mL/min BUN/Creatinine Ratio 10.1 10.0-20.0 Serum Glucose 139 H 74-106 mg/dL Lactic Acid Level 1.3 0.4-2.0 mmol/L Calcium Level 10.1 8.7-10.4 mg/dL Phosphorus Level 4.0 2.4-5.1 mg/dL Magnesium Level 1.3 L 1.6-2.6 mg/dL Urine Color Yellow Yellow Urine Clarity Clear Clear Urine pH 8.0 5.0-9.0 Urine Specific [place] 1.030 1.001-1.035 Urine Protein Trace H Negative Urine Ketones Negative Negative Urine Blood Negative Negative /uL Urine Nitrite Negative Negative Urine Bilirubin Negative Negative Urine Urobilinogen Normal Negative mg/dL Urine Leukocyte Esterase Negative Negative /uL Urine RBC <1 0 - 4 /hpf Urine Microscopic WBC < 1 0-5 /HPF Urine Squamous Epithelial Cells Few <5 /hpf Urine Bacteria None seen None Seen /hpf Urine Glucose Normal Normal mg/dL Urine Opiates Screen Neg NEGATIVE Urine Fentanyl Screen Neg NEGATIVE Urine Barbiturates Screen Neg NEGATIVE Urine Phencyclidine Screen Neg NEGATIVE Urine Amphetamines Screen Neg NEGATIVE Urine Benzodiazepines Screen Neg NEGATIVE Urine Cocaine Screen Neg NEGATIVE Urine Cannabinoids Screen Neg NEGATIVE POC Glucose 176 H 70-106 mg/dl Test 06/22/24 02:03 Range/Units Hemoglobin A1c 5.7 <5.7 % A1C Total Bilirubin 0.7 0.2-1.0 mg/dL Aspartate Amino Transferase (AST) 27 13-40 U/L Alanine Aminotransferase (ALT) 17 7-40 U/L Alkaline Phosphatase 107 46-116 U/L Total Protein 7.5 5.7-8.2 g/dL Albumin 4.9 H 3.2-4.8 g/dL Lipase 43 12-53 U/L Thyroid Stimulating Hormone (TSH) 1.16 0.55-4.78 uIU/mL Parathyroid Hormone (Intact) 57.3 18.4-80.1 pg/mL Assessment/Plan Problem List: (1) Abdominal pain (2) Partial small bowel obstruction Plan patient having severe abdominal pain associated with nausea , especially upper quadrant of abdominal pain per patient she has been having constipation since her knee surgery a few months ago and past two days no bowel movement , with abdominal distention and has become progressively worse abdomen tender to palpation, patient has history of abdominal surgeries Eva: NPO NGT to LCS Gastrografin UGI small bowel series Plan discussed with: Patient, Daughter, Other (Dr. Davis ) Visit Coding Surgery Date of Service if different f: Jun 22, 2024 Billing Provider: MANUEL DAVIS MD Surgery Visit Codes: 53504 - INP CONSULT <80 MIN [facility]YN [facility] Jun 22, 2024 09:58
[2024-06-22] MEDS ORDERED: MORPHINE SULFATE 4 MG/ML SYR/VIAL IV PRN (11:00)
[2024-06-22] MEDS: MORPHINE SULFATE 4 MG/ML SYR/VIAL IV STA (11:06)
--- NOTE | 2024-06-22 11:39 | DVHPNRES ---
Progress Note Date Seen: Jun 22, 2024 Resident Creating Document: EMILY LA RESIDENT Has the PT tested + for MRSA If YES, has PT been informed?: No Medical Necessity Reason Pt with a Central, PICC or Fol: No Subjective Review of Systems Patient is a 74-year-old female with significant past medical history presented to the ED today with 1 day history of severe abdominal pain. According to the patient, she was in her normal state of health the day prior but upon waking up yesterday morning, she started having mild general abdominal pain that became severe and associated with nausea and vomiting. She felt generalized soreness in her abdomen as though she was hit with a fist. The pain continued the entire day without relief thus prompting the ED visit. Patient denied any history of trauma, abdominal surgery; however, she did admits having other surgeries. Patient denied any fever, chest pain, palpitation, weakness. CT abdomen reveals dilated loops of small bowel with transition point in the lower mid abdomen favoring early complete versus partial small bowel obstruction. Past Medical history: Lupus, sarcoidosis, hypothyroidism, diabetes, hypertension, Past surgical history : Bilateral knee replacement, max mastitis, tonsillectomy, cholecystectomy and hysterectomy Objective vital signs Vital Sign Date Time Temp Pulse Resp B/P (MAP) Pulse Ox O2 Delivery O2 Flow Rate FiO2 06/22/24 11:06 113 13 156/68 06/22/24 10:00 97 06/22/24 07:41 98.4 98.4 06/22/24 07:41 Nasal Cannula* 2 28 Total Intake and Output 06/21/24 06/21/24 06/22/24 15:00 23:00 07:00 Intake Total 1050 ml Balance 1050 ml medications Current Medications Medications Dose Ordered Sig/Alli Route Start Time Stop Time Status Last Admin Dose Admin Morphine Sulfate 2 mg Q30M PRN IV 06/22/24 05:45 Metronidazole 100 ml @ 100 mls/hr Q8HR IV 06/22/24 06:00 06/22/24 06:27 100 MLS/HR Ceftriaxone Sodium 50 ml @ 100 mls/hr DAILY@09 IV 06/23/24 09:00 Pantoprazole Sodium 40 mg DAILY IV 06/22/24 10:00 06/22/24 09:31 40 MG Enoxaparin Sodium 40 mg DAILY SC 06/22/24 10:00 06/22/24 09:32 40 MG Ondansetron HCl 4 mg Q4HPRN PRN IV 06/22/24 09:30 Morphine Sulfate 4 mg Q3HPRN PRN IV 06/22/24 11:00 Examination General Appearance: Alert, Oriented X3, moderate distress, ng tube HEENT: Atraumatic, PERRLA, EOMI, Mucous membr. moist/pink Respiratory: Clear to auscultation, Normal air movement Cardiovascular: Regular rate, Normal S1, Normal S2, Abdomen: distended, generalized tenderness Extremities: No clubbing, No cyanosis, No edema, Normal pulses, No tenderness/swelling Skin: No rashes, No breakdown Neuro: Normal gait, Normal speech, Strength at 5/5 X4 ext, Normal tone (tender) Psych/Mental Status: Mental status NL, Mood NL laboratory and microbiology Laboratory Tests 06/22/24 07:06 Test 06/22/24 07:06 Range/Units Serum Glucose 139 H 74-106 mg/dL Problem List/Assessment/Plan Problem List/Assessment/Plan #Septic shock #Small bowel obstruction #SLE #Sarcoidosis #Hypothyroidism #Obesity #Chronic hyponatremia #Nstemi type 2: demand ischemia ICU status NG tube Baldwin catheter Surgery consulted: Gastrografin small bowel series IV fluids Levophed PICC line consult Ceftriaxone + Metronidazole IV fluids: 2 lt given maintenance 60 cc/h Pain management: hydromorphone and ketorolac Case discussed with Dr Gaona Plan discussed with: Patient, Other My Orders My Orders Orders - EMILY LA Procedure Category Date Status Time Admit ADMIT 06/22/24 Transmitted 11:24 Transfer Orders XFER 06/22/24 Transmitted 11:29 Date of Service: Jun 22, 2024 Billing Provider: IZZY GAONA MD Common Visit Codes: [id number] INP/OBS CARE(HIGH) EMILY LA RESIDENT Jun 22, 2024 11:38 IZZY GAONA MD Jun 22, 2024 21:19
[2024-06-22] MEDS: GASTROGRAFIN 120 ML SOL ONE (12:59)
[2024-06-22] MEDS ORDERED: HYDROmorphone HCL 2 MG/ML VL/or syr IV PRN (13:15)
[2024-06-22] MEDS: LORazepam 2MG/ML-1ML VIAL IV PRN (13:23)
[2024-06-22] MEDS: HYDROmorphone HCL 2 MG/ML VL/or syr IV ONE (13:35)
[2024-06-22] MEDS ORDERED: NOREPINEPHRINE 8 MG/250ML KIT 250 ML IV SCH (15:30)
[2024-06-22 16:12] LABS: Basophils # (auto) 0 10 ^3/uL (0-0.2); Basophils % (auto) 0.1 % (0.0-2.0); Eosinophils # (auto) 0 10 ^3/uL (0-0.8); Eosinophils % (auto) 0.1 % (0.0-7.0); Hematocrit 35.2 % (36.0-46.0); Hemoglobin 11.1 g/dL (12.2-16.2); Lymphocytes # (auto) 0.4 10 ^3/uL (0.4-5.4); Lymphocytes % (auto) 2.8 % (10.0-50.0); Mean Corpuscular Hemoglobin 27.4 pg (28.0-32.0); Mean Corpuscular Hgb Conc. 31.6 g/dL (32.0-36.0); Mean Corpuscular Volume 86.9 fL (80.0-100.0); Monocytes # (auto) 1.3 10 ^3/uL (0-1.3); Monocytes % (auto) 8.2 % (0.0-12.0); Neutrophils # (auto) 14.2 10 ^3/uL (1.6-8.6); Neutrophils % (auto) 88.8 % (37.0-80.0); Nucleated Red Blood Cells % 0.1 %; Platelet Count (auto) 295 10^3/uL (140-450); Red Blood Cells 4.06 10^6/uL (4.0-5.20); Red Cell Distribution Width 14.6 % (11.8-14.3)
[2024-06-22 16:33] LABS: Lactic Acid w/Reflex 4.1 mmol/L (0.4-2.0)
[2024-06-22] MEDS: SODIUM CHLORIDE 0.9% 1,000 ML IV STA (17:18)
[2024-06-22] MEDS: KETOROLAC TROMETH 30 MG/ML 1ML VIAL IV SCH (20:33)
[2024-06-22 22:02] VITALS: PULSE 113; RESP 19; O2SAT 96
--- NOTE | 2024-06-22 23:00 | DVH ---
Procedure: XY SMALL BOWEL SERIES-W GASTROGRA Reason for study/Clinical History: R/O obstruction Comparison Study: None available at time of dictation. Technique: Single contrast small bowel series performed. Findings: The proximal jejunum is dilated to 46 0.4 mm which is above normal limits I do not apprecia te contrast in the ileum. Impression: Patient appears to be obstructed at the level of the jejunum in left upper quadrant 1.
[2024-06-23 04:00] VITALS: TEMP 98.4
[2024-06-23] MEDS: NOREPINEPHRINE 8 MG/250ML KIT 250 ML IV ONE (04:10)
[2024-06-23] MEDS: PHENYLEPHRINE IV 250 ML IV ONE (04:34)
[2024-06-23] MEDS: EPINEPHrine HCL 1 MG/10 ML SYRG ONE ×3 (04:42→05:57)
--- NOTE | 2024-06-23 05:07 | DVHNC2 ---
Intubation Indication: Respiratory Insufficiency, Airway Protection Prep: Preoxygenation Intubation Approach: Orotracheal Informed consent obtained: No (Code blue) Risks/benefits/alt described: No Date of Service: Jun 23, 2024 Billing Provider: JESSA CHEEK Common Visit Codes: PROCEDURE ONLY Procedure Codes: [id number], [id number] CODE BLUE JESSA CHEEK Jun 23, 2024 05:07
[2024-06-23] MEDS: NOREPINEPHRINE 8 MG/250ML KIT 250 ML IV SCH (05:24)
[2024-06-23] MEDS: EPINEPHrine HCL 250 ML IV SCH (05:24)
[2024-06-23] MEDS: PHENYLEPHRINE IV 250 ML IV SCH (05:24)
[2024-06-23] MEDS: SODIUM CHLORIDE 0.9% 1,000 ML IV ONE (05:30)
[2024-06-23] MEDS ORDERED: PHENYLEPHRINE IV 250 ML IV SCH (05:45)
--- NOTE | 2024-06-23 05:52 | DVHNC2 ---
Central Line Recorder of insertion practice: Promotional Marketing Agent Occupation of manager metrology: Other (resident) Indication: Hypotension, Volume resuscitation Room prepared for procedure: Yes Promotional Marketing Agent performed hand hygien: Yes Maximal sterile barrier precau: Mask/Eye shield, Sterile gown, Cap, Sterlie gloves, Large sterlie drape Skin Preparation: Chlorhexidine gluconate Skin preparation completely dr: Yes Insertion site: Right, Femoral, Line secured Central line catheter type: Xnr-gxoctonm-smd dialysis Number of lumens: 3 Central line exchanged over a: No Antiseptic ointment applied to: Yes Post Assessment: Proper placement Informed consent obtained: No Risks/benefits/alt described: No UTO Consent Patient with cardiac arrest status post ROSC. Could not obtain informed conse nt. Completed central line placement with the supervision of Dr. Garcia Date of Service: Jun 23, 2024 Billing Provider: SALVADOR ATKINS MD Common Visit Codes: PROCEDURE ONLY Procedure Codes: [id number] NON-TUNNEL CV CATH ZABRINA FISHER RESIDENT Jun 23, 2024 05:52 SALVADOR ATKINS MD Jun 23, 2024 11:35
[2024-06-23] MEDS: ATROPINE SULF 0.5 MG/5ML SYR ONE (05:58)
[2024-06-23] MEDS: SODIUM BICARB 8.4% 50Meq/50ml SYR Vial IV ONE ×2 (05:58→07:00)
--- NOTE | 2024-06-23 06:03 | PRN ---
Misceleneous Note Note Note 74-year-old female admitted to the hospitalist service, boarding in the emergency department, status post cardiac arrest. I was at bedside supervising resident with a central line when patient lost pulses again. She went into a bradycardic rhythm. Compressions were initiated. Atropine and epinephrine were administered promptly. Patient was noted to be hypotensive. Saline bolus administered w/pressure bag. ROSC was obtained. Pat ient was started on epinephrine drip. Stat CT head, chest x-ray status post intubation and compressions, CT abdomen and pelvis. Stat lab studies ordered. Please see code sheet EDINSON AMAYA MD Jun 23, 2024 06:03
[2024-06-23] MEDS: ATROPINE SULF 1 MG/10ml SYR IV ONE (06:10)
--- NOTE | 2024-06-23 06:13 | DVH ---
EXAM: XR Chest, 1 View CLINICAL INDICATION: S/P intubation s/p cardiac arrest and ROSC TECHNIQUE: Frontal view of the chest. COMPARISON: XY CHEST XRAY 1 VIEW on DOS: 06/22/24 FINDINGS: LUNGS AND PLEURAL SPACES: Pulmonary congestion and edema. No pneumothorax. HEART: Unremarkable. No cardiomegaly. MEDIASTINUM: Unremarkable. Normal mediastinal contour. BONES/JOINTS: Unremarkable. No acute fracture. TUBES, LINES AND DEVICES: The endotracheal tube (ETT) is in satisfactory position. Enteric tube ti p in the stomach. OTHER FINDINGS: . IMPRESSION: Pulmonary congestion and edema. Pneumonia can not be excluded.
[2024-06-23 06:15] LABS: Alkaline Phosphatase 89 U/L (46-116); Anion Gap 23 (5-15); BUN/Creatinine Ratio 9.4 (10.0-20.0); Blood Urea Nitrogen 22 mg/dL (9-23); Chloride 105 mmol/L (98-107); Sodium 141 mmol/L (136-145)
[2024-06-23 06:16] LABS: Basophils # (auto) 0.1 10 ^3/uL (0-0.2); Basophils % (auto) 0.6 % (0.0-2.0); Bilirubin, Total 0.6 mg/dL (0.2-1.0); Eosinophils # (auto) 0.1 10 ^3/uL (0-0.8); Hematocrit 38.1 % (36.0-46.0); Red Blood Cells 4.12 10^6/uL (4.0-5.20); Red Cell Distribution Width 15.3 % (11.8-14.3)
[2024-06-23 06:18] LABS: Eosinophils % (auto) 0.7 % (0.0-7.0); Hemoglobin 11.4 g/dL (12.2-16.2); Lymphocytes # (auto) 3.1 10 ^3/uL (0.4-5.4); Lymphocytes % (auto) 17.6 % (10.0-50.0); Mean Corpuscular Hemoglobin 27.7 pg (28.0-32.0); Mean Corpuscular Volume 92.4 fL (80.0-100.0); Monocytes # (auto) 0.9 10 ^3/uL (0-1.3); Monocytes % (auto) 4.9 % (0.0-12.0); Neutrophils # (auto) 13.5 10 ^3/uL (1.6-8.6); Neutrophils % (auto) 76.2 % (37.0-80.0); Nucleated Red Blood Cells % 0.9 %; Platelet Count (auto) 307 10^3/uL (140-450); White Blood Cell 17.7 10^3/uL (4.4-10.8)
[2024-06-23 06:24] LABS: Alanine Aminotransferase 732 U/L (7-40); Albumin 2.6 g/dL (3.2-4.8); Aspartate Aminotransferase 800 U/L (13-40); Calcium 10.7 mg/dL (8.7-10.4); Carbon Dioxide 13 mmol/L (20-31); Glucose 158 mg/dL (74-106); Phosphorus 13.1 mg/dL (2.4-5.1); Total Protein 4.1 g/dL (5.7-8.2)
[2024-06-23 06:28] LABS: Lactic Acid w/Reflex 14.8 mmol/L (0.4-2.0); Magnesium 5.8 mg/dL (1.6-2.6)
[2024-06-23] MEDS: DOPamine 1600MCG/ML D5W 250 ML IV SCH (06:30)
[2024-06-23 06:44] LABS: Base Excess -26.8 mmol/L (-2.0-3.0)
[2024-06-23] MEDS: MIDAZOLAM DRIP 50 mg/50mL 50 ML IV SCH (07:00)
[2024-06-23] MEDS: fentaNYL Drip 2500mCg/250mlNS 250 ML IV SCH (07:00)
[2024-06-23 07:14] VITALS: PULSE 123; RESP 24; O2SAT 100
[2024-06-23] MEDS ORDERED: SODIUM BICARB 50mEq/50ml Vial 150 ML in D5W 5% 1,000 ML IV SCH (07:15)
[2024-06-23 07:30] VITALS: BP 61/16
--- NOTE | 2024-06-23 07:35 | DVHPN2 ---
Progress Note Date Seen: Jun 23, 2024 Has the PT tested + for MRSA If YES, has PT been informed?: No Medical Necessity Reason Pt with a Central, PICC or Fol: No Objective vital signs Vital Sign Date Time Temp Pulse Resp B/P (MAP) Pulse Ox O2 Delivery O2 Flow Rate FiO2 06/23/24 07:14 123 24 100 100 06/23/24 06:41 68/32 (44) 06/23/24 04:00 98.4 98.4 06/22/24 22:02 Nasal Cannula* 2 Total Intake and Output 06/22/24 06/22/24 06/23/24 15:00 23:00 07:00 Intake Total 625 ml 3550.0 ml 100 ml Balance 625 ml 3550.0 ml 100 ml medications Current Medications Medications Dose Ordered Sig/Alli Route Start Time Stop Time Status Last Admin Dose Admin Morphine Sulfate 2 mg Q30M PRN IV 06/22/24 05:45 Pantoprazole Sodium 40 mg DAILY IV 06/22/24 10:00 06/22/24 09:31 40 MG Enoxaparin Sodium 40 mg DAILY SC 06/22/24 10:00 06/22/24 09:32 40 MG Ondansetron HCl 4 mg Q4HPRN PRN IV 06/22/24 09:30 Lorazepam 1 mg Q4HR PRN IV 06/22/24 13:00 06/23/24 00:06 1 MG Hydromorphone HCl 2 mg Q4HPRN PRN IV 06/22/24 13:15 Hold Ketorolac Tromethamine 15 mg Q6HPRN IV 06/22/24 19:15 06/27/24 19:14 06/23/24 00:06 15 MG Norepinephrine Bitartrate 250 ml @ 3.75 mls/hr Q24H IV 06/23/24 05:15 Phenylephrine HCl 250 ml @ 30 mls/hr Q8H20M IV 06/23/24 05:30 Epinephrine HCl 250 ml @ 7.5 mls/hr Q24H IV 06/23/24 06:00 Piperacillin Sod/ Tazobactam Sod 100 ml @ 25 mls/hr Q8HR IV 06/23/24 14:00 Dopamine HCl/ Dextrose 250 ml @ 13.5 mls/hr [id number] IV 06/23/24 06:30 Midazolam HCl 50 ml @ 1 mls/hr Q24H IV 06/23/24 07:00 Fentanyl Citrate 250 ml @ 2.5 mls/hr Q24H IV 06/23/24 07:00 Sodium Bicarbonate 150 ml/Dextrose 1,150 ml @ 100 mls/hr [id number] IV 06/23/24 07:15 UNV laboratory and microbiology Laboratory Tests 06/23/24 05:44 Test 06/23/24 05:44 Range/Units Serum Glucose 158 H 74-106 mg/dL Problem List/Assessment/Plan Problem List/Assessment/Plan 06/23/24patient intubated, on ventilator, abdomen soft, distended, Code Blue at 4:52,grand daughter at bedside, following my examination and review of x ray and Lab (upper small bowel obstruction,Potassium of 6),explained to family that although there is small bowel obstruction at this point operation is very risky, grand daughter stated "No, don't operate on her"). nurses in attendance. Plan discussed with: Other MANUEL MARTINEZ MD Jun 23, 2024 07:35
[2024-06-23] MEDS: PIPERACILLIN-TAZOB 3.375GM 100 ML IV ONE (07:43)
--- NOTE | 2024-06-23 08:12 | PRN ---
ZABRINA FISHER RESIDENT 06/23/24 0812: Misceleneous Note Note Note Patient presented multiple episodes of cardiac arrest, required ACLS maneuvers including endotracheal intubation, two defibrillation, and multiple IV medication (epinephrine, magnesium, calcium, amiodarone, bicarbonate and atropine). Called granddaughter to inform her on patient's critical state and prompted her to come to the hospital. Explained the patient was currently on life support, on multiple IV vasopressors, on mechanical ventilation, and not responding to treatment with no neurological response while off of sedation. Granddaughter at bedside during last code, decided to stopped resuscitation efforts. Time of 0739hs. SALVADOR ATKINS MD 06/23/24 1127: Misceleneous Note Note Note Critical care time 45 mins Date of Service: Jun 23, 2024 Billing Provider: SALVADOR ATKINS MD Common Visit Codes: [id number] CARE 30-74 MIN ZABRINA FISHER RESIDENT Jun 23, 2024 08:12 SALVADOR ATKINS MD Jun 23, 2024 11:27
--- NOTE | 2024-06-23 08:16 | RESUS ---
TINO ALDRIDGE ASSESSSMENT History of Events History of Events: 0452: WITNESSED BY PRIMARY RN THAT PATIENT WENT TACHYCARDIC AT 150S, HYPOXIC, DARK GREEN SECRETIONS FROM MOUTH. BECAME UNRESPONSIVE AND PULSELESS. TINO ALDRIDGE INITIATED. 0502: ROSC 05:33 TINO ALDRIDGE CALLED: PATIENT WENT BRADYCARDIC AND HYPOXIC. CHEST COMPRESSION STARTED. 0538: ROSC 0612: CODE LUIS CARLOS. PATIENT WENT BRADYCARDIC THEN ASYSTOLE 0618: ROSC 0652: CODE LUIS CARLOS 0659: ROSC Initial Information Time: 04:52 Arrest Witnessed: Yes CPR started initial time: 04:52 CPR started by whom: Hospital Staff Pre-Hospital Care: ACLS Type of arrest: Cardiac, Respiratory, Witnessed Spontaneous Respirations: No Pulse Present: No Monitoring: Pulse Oximetry, Telemetry Crash Cart Opened and Supplies: Yes Airway Ventilation Breathing at Onset: Apneic O2 Sat by Pulse Oximetry: 74 Oxygen Delivery Method: Nasal Cannula Time of first Assisted Ventila: 04:54 Intubation Size: 8.0 cuffed Intubated by: Brandon CHEEK NP Intubation Attempts: 1 Intubated orally: Yes Tube secured at: 26 CO2 indicator used: Yes Confirmation: Auscultation, Exhaled CO2 Suctioning (Oral/Tracheal): Yes Circulation Circulation : Time: 04:53 Pulse Rate (adult): 0 Blood Pressure Systolic: 0 Blood Pressure Diastolic: 0 Defibrillation Defbrillation #1: Time Defibrillator Shocked Pt.: 04:58 Pulse Present: No EKG Rhythm: V-Fibrillation Defbrillation #2: Time Defibrillator Shocked Pt.: 05:00 EKG Rhythm: V-Fibrillation Procedure - IV Procedure - IV : Comment RIGHT FOREARM 20G AND RIGHT HAND 20G PRESENT PRIOR TO TINO ALDRIDGE Medications & Response Medications and Responses #1: Medication Time: 04:54 ADULT Medications Given ADULT: Epinephrine 1 mg, Sodium Bacarbinate 50 meq Route of Administration: IV Heart Rate: 0 Blood Pressure Systolic: 0 Blood Pressure Diastolic: 0 Respiratory Rate: 0 O2 Sat by Pulse Oximetry: 0 EKG Rhythm: Asystole Comment 0456: PULSE CHECK - PULSELESS. CHEST COMPRESSION RESUMED. Medications and Responses #2: Medication Time: 04:57 ADULT Medications Given ADULT: Epinephrine 1 mg, Calcium Chloride 10 mL Route of Administration: IV Heart Rate: 0 EKG Rhythm: Asystole Comment 0458: PULSE CHECK - PULSELESS, V FIB. DEFIB AND CHEST COMPRESSION RESUMED. Medications and Responses #3: Medication Time: 04:58 ADULT Medications Given ADULT: Sodium Bacarbinate 50 meq Route of Administration: IV Medications and Responses #4: Medication Time: 05:00 ADULT Medications Given ADULT: Epinephrine 1 mg, Amiodarone 150 mg Route of Administration: IV EKG Rhythm: V-Fibrillation Comment 0500: PULSE CHECK - PULSELESS, VFIB. DEFIB AND CHEST COMPRESSION RESUMED. Medications and Responses #5: Medication Time: 05:02 ADULT Medications Given ADULT: Magnesium Sulfate 4 gm Route of Administration: IV Comment 0502: PULSE CHECK: PALPABLE PULSE, ROSC Medications and Responses #6: Medication Time: 05:34 ADULT Medications Given ADULT: Epinephrine 1 mg, Atropine 1 mg Route of Administration: IV Heart Rate: 0 EKG Rhythm: Asystole Comment 0536: PULSE CHECK: PULSELESS, CHEST COMPRESSION CONTINUED. Medications and Responses #7: Medication Time: 05:37 ADULT Medications Given ADULT: Epinephrine 1 mg Route of Administration: IV Heart Rate: 0 Comment 0538: PULSE CHECK: PALPABLE PULSE - ROSC Medications and Responses #8: Medication Time: 06:12 ADULT Medications Given ADULT: Epinephrine 1 mg Route of Administration: IV Heart Rate: 0 EKG Rhythm: Asystole EKG Rhythm: Asystole Comment 0614: PULSE CHECK: PULSELESS. CHEST COMPRESSION RESUMED. Medications and Responses #9: Medication Time: 06:15 ADULT Medications Given ADULT: Epinephrine 1 mg, Sodium Bacarbinate 50 meq Route of Administration: IV Heart Rate: 0 EKG Rhythm: Asystole Comment 0616: PULSE CHECK: PULSELESS. CHEST COMPRESSION RESUMED. Medications and Responses #10: Medication Time: 06:16 ADULT Medications Given ADULT: Atropine 1 mg, Calcium Chloride 10 mL Route of Administration: IV Heart Rate: 0 Medications and Responses #11: Medication Time: 06:18 ADULT Medications Given ADULT: Epinephrine 1 mg Route of Administration: IV Heart Rate: 0 Comment 0618: PULSE CHECK: PALPABLE PULSE. SINUS BRADYCADIA NOTED ON ZOLL. ROSC. Medications and Responses #12: Medication Time: 06:53 ADULT Medications Given ADULT: Epinephrine 1 mg, Sodium Bacarbinate 50 meq Route of Administration: IV Heart Rate: 0 Comment 0654: PULSE CHECK: PULSELESS, ASYSTOLE. CHEST COMPRESSION RESUMED. Medications and Responses #13: Medication Time: 06:56 ADULT Medications Given ADULT: Sodium Bacarbinate 50 meq Route of Administration: IV EKG Rhythm: Asystole EKG Rhythm: Asystole Comment 0656: PULSE CHECK: PULSELESS, ASYSTOLE. CHEST COMPRESSION RESUMED. Medications and Responses #14: Medication Time: 06:57 ADULT Medications Given ADULT: Epinephrine 1 mg, 2 Amps Na Bicarb Route of Administration: IV EKG Rhythm: Asystole Medications and Responses #15: Medication Time: 06:59 ADULT Medications Given ADULT: Epinephrine 1 mg Heart Rate: 0 Comment 0659: PULSE CHECK: PALPABLE PULSE. SINUS BRADYCARDIA. ROSC. Procedure - NG/OG Tube Procedure - NG/OG Tube : Comment NG TO THE RIGHT NARE PLACED PRIOR TO CODE Nurses Notes [place] Coma Scale Eye Opening: None (1) Jaimee Coma Scale Verbal: None (1) [place] Coma Scale Motor: None (1) [place] Total: 3 Pupil Reaction: Non Reactive Bedside Blood Glucose: 147 Nurses Notes - Comment: VS ON ROSC: TEMP 99.9 RECTAL, HR 79, BP 115/36, RR 26 Time Code Ended Time Code Ended: 05:02 Post Arrest Status: Ventilated Outcome of code: Successful Code Team Present: PROVIDERS: Brandon CHEEK NP, DR KAUFFMAN - GENESIS COBOS, RESIDENT MD FISHER, ER MD DR WILL PRIMARY RN: TAJ RIVAS RN: SADIQ RNs: ROSANNA GUTHRIE LAUREN ERT: MAI SCALES BRIAN, JOSHUA HYDRAULIC TESTER: GAY GODWIN IRENE, TABITHA HS RN: NATHAN Post Resuscitation Neurologica Pupil Size: 3 ROSC Time of ROSC: 05:02 NATHAN DICKINSON Jun 23, 2024 08:16
[2024-06-23] MEDS ORDERED: cefTRIAXone 1GM/50ML D5W 50 ML IV SCH (09:00)
--- NOTE | 2024-06-23 09:48 | DVHDS2 ---
Summary Date of Admission Jun 22, 2024 at 05:44 Date and Time of Expiration: Jun 23, 2024 07:39 Reason for Admission: small bowel obstruction Labs/Diagnostic Data: Laboratory Results Test 06/23/24 06:32 06/23/24 05:44 06/22/24 15:57 06/22/24 07:06 Blood Gas Specimen Type Arterial Blood Gas Sample Site Left radial Blood Gas Patient Temperature 37.0 Arterial Blood Date Drawn [id number] Arterial Blood pH 6.742 (7.350-7.450) Arterial Blood Partial Pressure CO2 62.6 mmHg (32.0-45.0) Arterial Blood Partial Pressure O2 110.8 mmHg (83.0-108.0) Arterial Blood HCO3 8.3 mmol/L (21.0-28.0) Arterial Blood Oxygen Saturation 90.9 % (94.0-98.0) Arterial Blood Base Excess -26.8 mmol/L (-2.0-3.0) Arterial Blood Oxyhemoglobin 90.3 % (94.0-98.0) Arterial Blood Carboxyhemoglobin 0.1 % (0.5-1.5) Arterial Blood Methemoglobin 0.6 % (0.0-1.5) Daniel Test Modified Blood Gas Total Hemoglobin 10.40 g/dL (12.0-16.0) Blood Gas Set Respiration Rate 18.0 Blood Gas Modality Vent - ac Blood Gas Spontaneous Rate 18 FiO2 % 100.0 Blood Gas Tidal Volume 450.0 Blood Gas PEEP or CPAP 5.0 Blood Gas Critical Value Read Back Yes Blood Gas Notified Whom Dr. norberto yuen Blood Gas Notified Time [id number] Blood Gas Notified By White Blood Count 17.7 10^3/uL (4.4-10.8) Red Blood Count 4.12 10^6/uL (4.0-5.20) Hemoglobin 11.4 g/dL (12.2-16.2) Hematocrit 38.1 % (36.0-46.0) Mean Corpuscular Volume 92.4 fL (80.0-100.0) Mean Corpuscular Hemoglobin 27.7 pg (28.0-32.0) Mean Corpuscular Hemoglobin Concent 30.0 g/dL (32.0-36.0) Red Cell Distribution Width 15.3 % (11.8-14.3) Platelet Count 307 10^3/uL (140-450) Mean Platelet Volume 8.4 fL (6.9-10.8) Neutrophils (%) (Auto) 76.2 % (37.0-80.0) Lymphocytes (%) (Auto) 17.6 % (10.0-50.0) Monocytes (%) (Auto) 4.9 % (0.0-12.0) Eosinophils (%) (Auto) 0.7 % (0.0-7.0) Basophils (%) (Auto) 0.6 % (0.0-2.0) Neutrophils # (Auto) 13.5 10 ^3/uL (1.6-8.6) Lymphocytes # (Auto) 3.1 10 ^3/uL (0.4-5.4) Monocytes # (Auto) 0.9 10 ^3/uL (0-1.3) Eosinophils # (Auto) 0.1 10 ^3/uL (0-0.8) Basophils # (Auto) 0.1 10 ^3/uL (0-0.2) Nucleated Red Blood Cells 0.9 % Sodium Level 141 mmol/L (136-145) Potassium Level 6.0 mmol/L (3.5-5.1) Chloride Level 105 mmol/L (98-107) Carbon Dioxide Level 13 mmol/L (20-31) Anion Gap 23 (5-15) Blood Urea Nitrogen 22 mg/dL (9-23) Creatinine 2.35 mg/dL (0.550-1.02) Glomerular Filtration Rate Calc 21 mL/min (>90) BUN/Creatinine Ratio 9.4 (10.0-20.0) Serum Glucose 158 mg/dL (74-106) Lactic Acid Level 14.8 mmol/L (0.4-2.0) Calcium Level 10.7 mg/dL (8.7-10.4) Phosphorus Level 13.1 mg/dL (2.4-5.1) Magnesium Level 5.8 mg/dL (1.6-2.6) Total Bilirubin 0.6 mg/dL (0.2-1.0) Aspartate Amino Transferase (AST) 800 U/L (13-40) Alanine Aminotransferase (ALT) 732 U/L (7-40) Alkaline Phosphatase 89 U/L (46-116) Troponin I High Sensitivity 577 ng/L (</=34) Total Protein 4.1 g/dL (5.7-8.2) Albumin 2.6 g/dL (3.2-4.8) Thyroid Stimulating Hormone (TSH) 5.60 uIU/mL (0.55-4.78) C-Reactive Protein High Sensitivity 1.82 mg/dL (<1.0) Prothrombin Time 11.2 sec (9.3-11.8) Prothrombin Time INR 1.06 (0.9-1.15) Activated Partial Thromboplast Time 25.4 SEC (24.5-34.5) Test 06/22/24 05:15 06/22/24 02:27 06/22/24 02:03 Urine Color Yellow (Yellow) Urine Clarity Clear (Clear) Urine pH 8.0 (5.0-9.0) Urine Specific Mode 1.030 (1.001-1.035) Urine Protein Trace (Negative) Urine Ketones Negative (Negative) Urine Blood Negative /uL (Negative) Urine Nitrite Negative (Negative) Urine Bilirubin Negative (Negative) Urine Urobilinogen Normal mg/dL (Negative) Urine Leukocyte Esterase Negative /uL (Negative) Urine RBC <1 /hpf (0 - 4) Urine Microscopic WBC < 1 /HPF (0-5) Urine Squamous Epithelial Cells Few /hpf (<5) Urine Bacteria None seen /hpf (None Seen) Urine Glucose Normal mg/dL (Normal) Urine Opiates Screen Neg (NEGATIVE) Urine Fentanyl Screen Neg (NEGATIVE) Urine Barbiturates Screen Neg (NEGATIVE) Urine Phencyclidine Screen Neg (NEGATIVE) Urine Amphetamines Screen Neg (NEGATIVE) Urine Benzodiazepines Screen Neg (NEGATIVE) Urine Cocaine Screen Neg (NEGATIVE) Urine Cannabinoids Screen Neg (NEGATIVE) POC Glucose 176 mg/dl (70-106) Hemoglobin A1c 5.7 % A1C (<5.7) Lipase 43 U/L (12-53) Parathyroid Hormone (Intact) 57.3 pg/mL (18.4-80.1) Other Laboratory Tests 06/23/24 05:44 Brief Hx & Hospital Course: Ms. Elissa Garcia, a 74-year-old female with a history of lupus, sarcoidosis, hypothyroidism, diabetes, and hypertension, was admitted 06/22/24 00:46 with severe abdominal pain and was diagnosed with a small bowel obstruction in the ct scan with Dilated loops of small bowel with transition point in the lower mid abdomen favoring early complete versus partial small bowel obstruction.. Patient was placed on NG tube, NPO and IV AB, Surgery was consulted and they considered gastrografin study since the patient didn't have peritoneal signs at 9 am. Patient started to be hypotensive at 3 pm, was upgraded to ICU.and multiple IV fluid boluses were given, also levophed was initiated. The gastrographin confirmed obstruction at the level of the jejunum in the left upper quadrant. The patient was in ICU. The patient now max out on multiple vasopressure such as dopamine, epinephrine, norepinephrine..... At approximately 4:00 a.m., the patient suffered a cardiac arrest. The night team initiated advanced cardiac life support, including emergent intubation, central line placement, and five cycles of cardiopulmonary resuscitation (CPR). The general surgeon, Dr Davila assessed the patient and thoroughly discussed the risks and benefits of surgical intervention with the family. Given the the high perioperative risk, the family elected to pursue conservative management rather than proceeding with surgery. The medical team discussed the outcome with the family, and they expressed understanding of the patients critical condition and prior decision to forgo surgical intervention. Family decided to not continue CPR. She was pronounced at 7:39 a.m. today. Case discussed with Dr Flores Consults/Reason for consult surgery due to bowel obstruction Operations or Procedures Exam: CT CT AB PEL WITH IV CON ONLY History: Abdominal pain Comparison Study: None available at time of dictation. Contrast: 100 cc Omnipaque 300 TECHNIQUE: A digital case filler image was obtained. During the uneventful, intravenous administration of contrast material, multislice data acquisition was obtained through the abdomen and pelvis. The data set was subsequently reconstructed into axial images. Images were reviewed on a work station using a combination of axial and multiplanar using a variety of window levels and settings. All CT scans at this medical facility are performed using dose modulation techniques as appropriate to a performed exam including the following: Automated exposure control was utilized; adjustment of the MA and/or KV according to patient size; and use of iterative reconstruction technique. Radiation Dose Information: CT Dose: CTDI volume is 18.81 mGy. Dose-length product is 941.77 mGy*cm FINDINGS: Imaged portions of the lung bases appear unremarkable. Small hiatal hernia. Lobulated lesion in the left hepatic lobe measuring 2.1 cm has the appearance of cyst. There has been prior cholecystectomy. The spleen, pancreas and adrenal glands appear unremarkable. The kidneys enhance symmetrically with small bilateral cysts. The colon is redundant. Appendix not well visualized. There are mildly dilated loops of proximal small bowel measuring up to 3.3 cm containing inspissated debris and fluid with collapsed distal ileal loops. Transition point appearing in the lower mid abdomen. Trace free fluid. No evidence of free intraperitoneal air or pneumatosis. No suspicious osseous lesion. IMPRESSION: 1. Dilated loops of small bowel with transition point in the lower mid abdomen favoring early complete versus partial small bowel obstruction. HS:Y Procedure: XY SMALL BOWEL SERIES-W GASTROGRA Reason for study/Clinical History: R/O obstruction Comparison Study: None available at time of dictation. Technique: Single contrast small bowel series performed. Findings: The proximal jejunum is dilated to 46 0.4 mm which is above normal limits I do not appreciate contrast in the ileum. Impression: Patient appears to be obstructed at the level of the jejunum in left upper quadrant Final Diagnosis/Problems List #s/p cardiac arrest #possible PNA gram +/gram - #Septic shock #Small bowel obstruction #SLE #Sarcoidosis #Hypothyroidism #Obesity #Chronic hyponatremia #Nstemi type 2: demand ischemia Discharge Disposition: at Hospital Date of Service: Jun 23, 2024 Billing Provider: IZZY FLORES MD Common Visit Codes: 69374-CVS/OBS DISCH DAY >30min EMILY LA RESIDENT Jun 23, 2024 09:48 IZZY FLORES MD Jun 23, 2024 22:39
--- NOTE | 2024-06-23 13:46 | ECG ---
[facility] Test Date: 2024-06-23 Test Time: 05:10:32 Pat Name: COLLEEN VARGAS Department: ER Room: [address] [place] [address] Gender: F Varitype Operator: ER : 1950 Requested By: EDINSON AMAYA Order Number: [id number] Reading MD: Kervin Roca Measurements Intervals Berger Rate: 64 P: 0 AK: 0 QRS: 107 QRSD: 138 T: 33 QT: 345 QTc: 356 Interpretive Statements Junctional rhythm Right bundle branch block Electronically Signed On 06-25-2024 19:09:00 PDT by Kervin Roca Please click the below link to view image of tracing.
[2024-06-23] MEDS ORDERED: PIPERACILLIN-TAZOB 3.375GM 100 ML IV SCH (14:00)
--- NOTE | 2024-06-23 19:12 | RESUS ---
TINO LUIS CARLOS ASSESSSMENT History of Events History of Events: TINO ALDRIDGE WAS CALLED BY PRIMARY RN LYNNE. ON ASSESSMENT, RN WAS NOT ABLE TO FEEL PULSES. Initial Information Date: Jun 23, 2024 Time: 07:28 Location of Arrest: ER Arrest Witnessed: Yes CPR started initial time: 07:28 CPR started by whom: Hospital Staff Type of arrest: Cardiac, Witnessed Spontaneous Respirations: No Pulse Present: No Monitoring: ECG, Pulse Oximetry Crash Cart Opened and Supplies: Yes Airway Ventilation Breathing at Onset: Assisted Oxygen Delivery Method: Mechanical Ventilator Artificial Ventilation: Bag/Endo tube Circulation Circulation #1: Time: 07:32 Circulation Comment: ASYSTOLE Circulation #2: Time: 07:35 Circulation Comment: ASYSTOLE Circulation #3: Time: 07:38 Pulse Rate (adult): 20 Circulation Comment: PEA Medications & Response Medications and Responses #1: Medication Time: 07:31 ADULT Medications Given ADULT: Epinephrine 1 mg Route of Administration: IV EKG Rhythm: Asystole Medications and Responses #2: Medication Time: 07:32 ADULT Medications Given ADULT: Sodium Bacarbinate 50 meq Route of Administration: IV EKG Rhythm: Asystole Medications and Responses #3: Medication Time: 07:33 ADULT Medications Given ADULT: Atropine 0.5 mg Route of Administration: IV EKG Rhythm: Asystole Medications and Responses #4: Medication Time: 07:34 ADULT Medications Given ADULT: Epinephrine 1 mg Route of Administration: IV EKG Rhythm: Asystole Medications and Responses #5: Medication Time: 07:36 ADULT Medications Given ADULT: Sodium Bacarbinate 50 meq Route of Administration: IV EKG Rhythm: Asystole Medications and Responses #6: Medication Time: 07:37 ADULT Medications Given ADULT: Epinephrine 1 mg Route of Administration: IV EKG Rhythm: Asystole Nurses Notes [place] Coma Scale Eye Opening: None (1) Jaimee Coma Scale Verbal: None (1) Jaimee Coma Scale Motor: None (1) Pupil Reaction: Non Reactive Bedside Blood Glucose: 147 Nurses Notes - Comment: VS ON ROSC: TEMP 99.9 RECTAL, HR 79, BP 115/36, RR 26 Time Code Ended Time Code Ended: 07:39 Post Arrest Status: Outcome of code: Unsuccessful Patient pronounced by: NATALIA Time patient pronounced: 07:39 Family notified: Yes Code Team Present: DR KEARA SHAFER, TEX CORONEL, OBSTETRIC ASSISTANT RT MANUEL BROWNLEE RN SMITH, HENRIKE C Jun 23, 2024 19:12
== END 2024-06-23 08:07 | DRG 871 ==
LOC: ER 00:55 → EDBD 00:55 → OVERFLOW 05:44
PROVIDERS: ADMIT Internal Medicine; ATTEND Internal Medicine
PROC: 0BH17EZ Insertion of Endotracheal Airway into Trachea, Via Natural or Artificial Opening (ICD-10-PCS; principal; 2024-06-23)
PROC: 5A1935Z Respiratory Ventilation, Less than 24 Consecutive Hours (ICD-10-PCS; 2024-06-23)
PROC: 06HY33Z Insertion of Infusion Device into Lower Vein, Percutaneous Approach (ICD-10-PCS; 2024-06-23)
PROC: 5A12012 Performance of Cardiac Output, Single, Manual (ICD-10-PCS; 2024-06-23)
PROC: 5A2204Z Restoration of Cardiac Rhythm, Single (ICD-10-PCS; 2024-06-23)
DX: A41.9 Sepsis, unspecified organism (principal); I21.A1 Myocardial infarction type 2; J15.69 Pneumonia due to other Gram-negative bacteria; R65.21 Severe sepsis with septic shock; J15.9 Unspecified bacterial pneumonia; E87.1 Hypo-osmolality and hyponatremia; K56.600 Partial intestinal obstruction, unspecified as to cause; E87.20 Acidosis, unspecified; E03.9 Hypothyroidism, unspecified; I46.9 Cardiac arrest, cause unspecified; D86.9 Sarcoidosis, unspecified; M32.9 Systemic lupus erythematosus, unspecified; E11.65 Type 2 diabetes mellitus with hyperglycemia; Z96.653 Presence of artificial knee joint, bilateral; E66.9 Obesity, unspecified; Z68.29 Body mass index [BMI] 29.0-29.9, adult; I10 Essential (primary) hypertension; Z90.49 Acquired absence of other specified parts of digestive tract; Z88.1 Allergy status to other antibiotic agents; Z88.3 Allergy status to other anti-infective agents; Z90.710 Acquired absence of both cervix and uterus; Z90.12 Acquired absence of left breast and nipple; Z85.3 Personal history of malignant neoplasm of breast; Z79.84 Long term (current) use of oral hypoglycemic drugs; Z79.899 Other long term (current) drug therapy
CPT/HCPCS: 36415; 36556; 36600; 71045; 74177; 74250; 80048; 80053; 80307; 81001; 82805; 82962; 83036; 83605; 83690; 83735; 83970; 84100; 84443; 84484; 85025; 85610; 85730; 86141; 87040; 92950; 93005; 94002; 94640; 96365; 96375; G0378; J0461; J1885; J2405; J2470; J2543; J3490